=== PATIENT | male | born 1965 | race Two or more races ===

== ENCOUNTER 2017-09-17 06:46 | Day surgery (SDC) | payer OTHER ==
[2017-09-17] VITALS (11 sets, daily range): BP systolic 121–156; BP diastolic 46–99
[~2017-09-17] VITALS: Ht 162.6 cm; Wt 90.7 kg
--- NOTE | 2017-09-17 06:45 | Anethesia Preoperative Eval ---
Anesthesia Pre-op PMH/ROS General Date of Evaluation: Sep 17, 2017 Time of Evaluation: 07:51 Anesthesiologist: roberto ASA Score: ASA 3 Mallampati Score Class I : Soft palate, uvula, fauces, pillars visible Class II: Soft palate, uvula, fauces visible Class III: Soft palate, base of uvula visible Class IV: Only hard plate visible Mallampati Classification: Class II Surgeon: beatriz Diagnosis: gerd Surgical Procedure: egd Anesthesia History: none Social History: smoking - former smoker, alcohol use Family History: no anesthesia problems Allergies: Coded Allergies: No Known Allergies (Unverified , 09/16/17) Medications: see eMAR Past Medical History Cardiovascular: Reports: HTN Gastrointestinal/Genitourinary: Reports: GERD HEENT: Reports: other - decreased hearing Musculoskeletal/Integumentary: Reports: other - back pain Other: obesity Anesthesia Pre-op Phys. Exam Physician Exam Constitutional: NAD Neurologic: CN 2-12 intact Cardiovascular: RRR Respiratory: CTA Gastrointestinal: S/NT/ND Airway Exam Mallampati Score: Class II MO: full Neck: short TMD: 3fb ROM: limited Anesthesia Pre-op A/P Risk Assessment & Plan Assessment: asa3 Plan: mac Status Change Before Surgery: No Pre-Antibiotics Drug: CARIDAD Mendoza Sep 17, 2017 06:45
[2017-09-17] MEDS ORDERED: LR 1000ml 1,000 ML IVLG SCH (07:00)
[2017-09-17] MEDS ORDERED: Propofol 200mg/20ml IV ONE (07:00)
[2017-09-17] MEDS ORDERED: Lidocaine 1% MPF 10mg/ml 5ml ONE (07:00)
[2017-09-17] MEDS ORDERED: LR 1000ml ONE (07:00)
--- NOTE | 2017-09-17 07:43 | Short Stay Surgery H&P ---
History of Present Illness History of Present Illness Chief Complaint Abdominal pains and GERDs HPI Domo Finley is a 52 year old male who was admitted on for GERD/abdominal pains Patient History Allergies: Coded Allergies: No Known Allergies (Unverified , 09/16/17) PAST MEDICAL HISTORY: (1) Hypertension Past Surgeries: Social History: Review of Systems Cardiovascular: Reports: no symptoms Respiratory: Reports: no symptoms Skeletal: Reports: trauma Gastrointestinal: Reports: gastro esophageal reflux disease Genitourinary: Reports: no symptoms Neurologic: Reports: no symptoms Endocrine: Reports: no symptoms Hematologic: Reports: no symptoms Physical Exam Skin: normal HENT: normal Heart: normal Lungs: normal Abdomen: abnormal Extremities: normal Genitourinary: normal Plan Plan of Care Upper GI endoscopy and biopsy Preop Interventions None. Summary of Findings See the report. Final Diagnosis: Attestation Are the patient's medical conditions optimized for surgery? Attestation Response: yes CHANDLER REYES Sep 17, 2017 07:43
--- NOTE | 2017-09-17 07:44 | Pre-Procedure Note/Attestation ---
Pre-Procedure Note/Attestation Complete Prior to Procedure Planned Procedure: left Procedure Narrative: Examination of the upper GI tract via endoscopy and biopsy Indications for Procedure Pre-Operative Diagnosis: R/O GAstritis/Peptic ulcer and esophagitis Attestation I attest that I discussed the nature of the procedure; its benefits; risks and complications; and alternatives (and the risks and benefits of such alternatives ), prior to the procedure, with the patient (or the patient's legal advertising account representative). I attest that, if there was a reasonable possibility of needing a blood transfusion, the patient (or the patient's legal advertising account representative) was given the [place] [employer] standardized written summary, pursuant to the [place] Blood Safety Act ([place] Health and Safety Code # 1645, as amended). I attest that I re-evaluated the patient just prior to the surgery and that there has been no change in the patient's H&P, except as documented below: CHANDLER REYES Sep 17, 2017 07:44
[2017-09-17] MEDS ORDERED: fentaNYL 100 mcg/2 mL IV PRN (08:00)
[2017-09-17] MEDS ORDERED: DiphenhydrAMINE 50mg/ml Inj IVP PRN (08:00)
[2017-09-17] MEDS ORDERED: Midazolam 2mg/2ml Inj IVP PRN (08:00)
[2017-09-17] MEDS ORDERED: Atropine Inj 1mg/10ml Syr IV PRN (08:00)
[2017-09-17] MEDS ORDERED: OMEPRAZOLE40 M1 ORAL (08:01)
--- NOTE | 2017-09-17 10:00 | Pre-op HX & Phy Repo 2 SIG ---
DATE OF ADMISSION: 09/17/2017 PREOPERATIVE HISTORY AND PHYSICAL EXAMINATION HISTORY OF PRESENT ILLNESS: The patient is a 52-year-old [id number] gentleman who is being seen prior to undergoing the procedure of upper GI endoscopy for which he has been scheduled to receive for evaluation of his gastrointestinal symptoms that he has suffered subsequent to his work injury. The patient basically is complaining of experiencing pain over the upper part of the abdomen and epigastric area, which occasionally radiates toward the chest and it is quite cumbersome. He also reports that during the night, he is awakened by feeling the pressure over his chest area. Occasionally, he does have difficulty swallowing and has also experienced feeling of nausea. 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 Basically, he was functioning and very active, but he had injuries during all this period of time that I mentioned. He was also experiencing chest pain and pain over his lumbar area, his both wrists with the diagnosis of carpal tunnel syndrome, and bilateral elbow epicondylitis and tendinitis is reported. He also has been suffering from anxiety and depressive mood and he has been seen by psychiatrist in the past. Obviously, the applicant has received also physical therapy as well subsequent to his injuries at work. PAST MEDICAL HISTORY: Basically none significant. He denies having any history of hyperlipidemia or cardiac condition though he has had history of hypertension, which seems to be stable. PAST SURGICAL HISTORY: Basically none significant. ALLERGIES: None. FAMILY HISTORY: Also nonsignificant. Chart is nonsignificant. REVIEW OF SYSTEMS: Basically as history of present illness. As mentioned, mostly abdominal pain at this time. Denies any shortness of breath or cough, etc. He also complains of pain over his joints. PHYSICAL EXAMINATION: GENERAL: Reveals alert and well oriented gentleman, does not seem to be in any acute distress. VITAL SIGNS: All stable. HEENT: Normocephalic. Pupils equal in size and reactive to light and accommodation. No jaundice. Buccal cavity, tongue midline, well hydrated. No ulcers. NECK: Supple. No JVD, thyromegaly, or adenopathy. CHEST: Clear to auscultation and percussion. No rales or rhonchi. HEART: S1 and S2 normal. Regular rhythm. No gallops or murmur. ABDOMEN: Soft, but tender over the upper part of the abdomen, but there is no any evidence of hepatosplenomegaly. No palpable mass. No ascites. EXTREMITIES: No pretibial edema, cyanosis, or clubbing. CENTRAL NERVOUS SYSTEM: Grossly normal. PRELIMINARY PREOPERATIVE IMPRESSION: 1. Epigastric pain of uncertain etiology, rule out gastroesophageal reflux/esophagitis, gastritis, duodenal or gastric ulcers caused by side effects of NSAID medication use for the treatment of bodily injury. 2. Anxiety, stress, and depression, which still exist. 3. History of bodily injury, orthopedic diagnosis, work-related. The applicant at this time seems to be quite stable to undergo the procedure of upper GI endoscopy for which he has been scheduled to receive. He understands the risks and benefits and will sign the consent. Said Waldemar Ariza DR: Lou JOB#: [id number] CC:
--- NOTE | 2017-09-17 10:15 | Procedure Note ---
DATE OF PROCEDURE: 09/17/2017 SURGEON: Belén Ariza M.D. PROCEDURE: Esophagogastroduodenoscopy with biopsy. PREOPERATIVE DIAGNOSES: 1. Abdominal pain. 2. Chest pain. 3. History of heartburn. POSTOPERATIVE DIAGNOSES: 1. Short-segment Pollock mucosa, biopsied. 2. Mild generalized gastritis with gastric biopsy obtained. MEDICATION USED: Per Dr. Delaney, anesthesiologist. INSTRUMENT: GIF Olympus upper GI video endoscope. DESCRIPTION OF PROCEDURE: The patient after arriving in endoscopy unit, was told about risks and benefits of the procedure, which he accepted and signed informed consent. He was then put on the left lateral decubitus position. After adequate IV sedation, the scope was gently passed through the cricopharyngeal area, was lodged into the upper esophagus, and gradually advanced towards gastroesophageal junction. The esophageal lumen itself was quite normal and there was no any evidence of inflammatory process, ulceration, stricture, etc., however, upon reaching toward the gastroesophageal junction, there was seen a very short segment of Pollock mucosa approximately 3 to 4 mm located above the Z-line. T2his area was biopsied also. At this point, the scope was advanced into the stomach. Gastric cavity was distended with insufflation of air. The areas of the fundus, the body, and the antrum were examined in an jump roll operator fashion, which revealed evidence of mild inflammatory process consistent with mild generalized gastritis. There was no any evidence of ulcers, bleeding, tumor, polyps, etc. Finally after obtaining random biopsy from gastric body, the scope was gradually passed through normal-looking pylorus. First and second portion of duodenum were found to be completely normal. Finally, the scope was pulled back into the stomach. A retroflexion maneuver was applied. The area of gastroesophageal junction was examined in a retrograde fashion, which revealed normal findings. At this point, the scope was pulled out. The procedure was terminated. The patient tolerated the procedure well and left the endoscopy room in a good condition. Belén Ariza M.D. DR: Lou JOB#: [id number] CC:
--- NOTE | 2017-09-17 10:20 | Endoscopy Procedure Note ---
Endoscopy Procedure Note General Indication for Procedure: Abdominal pains/GERDs. Procedures Performed: EGD - Mild gastritis, gastric biopsy obtained. Minimal Pollock's mucosa biopsied Specimen: yes Pt Tolerated Procedure Well: Yes Estimated Blood Loss: none Anesthesia Anesthesiologist: Dr. Delaney Anesthesia: moderate sedation Medications Medication Given: see anesthesia record Inserted Devices Implant(s) used?: No GI Core Measures 50 yrs or older w/o bx or poly: Not Applicable 10yrs. F/U not recommended: Not Applicable If not recommended, why?: Med reason:<3 yrs.: System Reason:<3 yrs.: Last colonoscopy >= to 3yrs: CHANDLER Chen Sep 17, 2017 10:20
--- NOTE | 2017-09-17 10:21 | Discharge Instructions ---
Discharge Instructions Discharge Instructions Follow up with: see the doctor after two weeks in office For Congestive Heart Failure Reminder Report to your physician any weight gain of 5 pounds or more in one week. CHANDLER REYES Sep 17, 2017 10:21
--- NOTE | 2017-09-17 10:51 | Immediate Post-Op Evaluation ---
Immediate Post-Op Evalulation Immediate Post-Op Evalulation Procedure: egd Date of Evaluation: Sep 17, 2017 Time of Evaluation: 08:38 IV Fluids: 300ml Blood Products: none Estimated Blood Loss: negligible Blood Pressure Systolic: 132 Blood Pressure Diastolic: 98 Pulse Rate: 66 Respiratory Rate: 18 O2 Sat by Pulse Oximetry: 95 Temperature (Fahrenheit): 97.0 Pain Score (1-10): 0 Nausea: No Vomiting: No Complications none Patient Status: awake, reacts, patent Hydration Status: adequate Drug: CARIDAD Mendoza Sep 17, 2017 10:51
--- NOTE | 2017-09-17 10:55 | 48 Hour Post Anesthesia Eval ---
Post Anesthesia Evaluation Procedure: egd Date of Evaluation: Sep 17, 2017 Time of Evaluation: 08:40 Blood Pressure Systolic: 137 0: 95 Pulse Rate: 66 Respiratory Rate: 18 Temperature (Fahrenheit): 97.0 O2 Sat by Pulse Oximetry: 97 Airway: patent Nausea: No Vomiting: No Pain Intensity: 0 Hydration Status: adequate Cardiopulmonary Status: stable Mental Status/LOC: patient returned to baseline Post-Anesthesia Complications: none Follow-up care needed: N/A CARIDAD BUI Sep 17, 2017 10:55
== END 2017-09-17 09:50 | disposition home or self-care (01) ==
LOC: GAS 06:46
DX: K22.70 Barrett's esophagus without dysplasia (principal); B96.81 Helicobacter pylori [H. pylori] as the cause of diseases classified elsewhere; K29.50 Unspecified chronic gastritis without bleeding; K21.0 Gastro-esophageal reflux disease with esophagitis; G56.03 Carpal tunnel syndrome, bilateral upper limbs; F41.9 Anxiety disorder, unspecified; F32.9 Major depressive disorder, single episode, unspecified; I10 Essential (primary) hypertension
CPT/HCPCS: 43239; J2704; J7120; 94003; 94150